=== PATIENT | female | born 1940 | race African-American/Black ===

== ENCOUNTER 2016-05-30 16:20 | Outpatient (CLI) | payer MEDICARE ==
[2016-05-30 18:17] LABS: Hemoglobin A1c 5.4 % (4.0-6.0)
== END 2016-05-30 16:21 | disposition home or self-care (01) ==
LOC: NAV LAB 16:20
PROVIDERS: ATTEND Physical Medicine & Rehabilitation
DX: E11.22 Type 2 diabetes mellitus with diabetic chronic kidney disease (principal)
CPT/HCPCS: 83036

== ENCOUNTER 2016-06-04 15:50 | Emergency (ER) | payer MEDICARE ==
[2016-06-04 16:44] LABS: Bilirubin Negative (Negative); Blood, Urine Moderate (Negative); Glucose, Urine (Dipstick) Negative (Negative); Ketone, Urine Negative (Negative); Nitrite Positive (Negative); Protein, Urine (Dipstick) > or equal to 300 mg/dL (Neg-Trace); Urobilinogen 0.2 mg/dL (0.2-1.0)
[2016-06-04 16:55] LABS: Bacteria/HPF 4+ HPF (None Seen); WBC/HPF 21-50 HPF (0-3)
[2016-06-04] MEDS ORDERED: Doxycycline 100 MG CAP ONE (17:17)
== END 2016-06-04 17:15 | disposition home or self-care (01) ==
LOC: NAV ERS 15:50
DX: N39.0 Urinary tract infection, site not specified (principal); D50.9 Iron deficiency anemia, unspecified; I50.9 Heart failure, unspecified; E11.9 Type 2 diabetes mellitus without complications; E03.9 Hypothyroidism, unspecified; E78.5 Hyperlipidemia, unspecified; E78.00 Pure hypercholesterolemia, unspecified; I11.0 Hypertensive heart disease with heart failure
CPT/HCPCS: 36416; 51701; 81003; 81015; 87077; 87086; 87186; 99283; A4353

== ENCOUNTER 2016-07-20 08:14 | Emergency (ER) | payer MEDICARE ==
[2016-07-20 08:56] LABS: #Basophils 0.2 thou/uL (0.0-0.2); #Eosinphils 1.5 thou/uL (0.0-0.7); #Lymphocytes 1.3 thou/uL (1.20-3.40); #Monocytes 1.4 thou/uL (0.11-0.59); #Neutrophils 7.1 thou/uL (1.40-6.50); %Basophils 1.3 % (0.0-1.0); %Eosinophils 12.9 % (0.0-10.0); %Lymphocytes 11.3 % (21.0-51.0); %Monocytes 12.2 % (0.0-10.0); %Neutrophils 62.1 % (42.0-75.0); Hemoglobin 10.8 g/dL (12.0-16.0); Mean Corpuscular HGB CONC 31.5 g/dL (32.0-36.0); Mean Platelet Volume 6.3 fL (7.4-10.4); Platelet Count 354 thou/uL (130-400); RBC Distribution Width 14.2 % (11.5-14.5); Red Blood Cell (RBC) Count 3.87 mill/uL (4.20-5.40); White Blood Cell (WBC) Count 11.5 thou/uL (4.8-10.8)
[2016-07-20] MEDS ORDERED: Acetaminophen 500 MG TAB ONE (08:56)
[2016-07-20] MEDS ORDERED: Piperacillin/Tazobactam 3.375 GM VIAL ONE (08:58)
[2016-07-20] MEDS ORDERED: Sodium Chloride 0.9% 250 ML 250 ML ONE (09:00)
[2016-07-20] MEDS ORDERED: Sodium Chloride 0.9% 100 ML ONE (09:01)
[2016-07-20 09:10] LABS: ALT (SGPT) 9 U/L (0-55); AST (SGOT) 15 U/L (5-34); Albumin 3.3 g/dL (3.4-4.8); Alkaline Phosphatase 101 U/L (40-150); Anion Gap 16 mmol/L (10-20); BUN (Urea Nitrogen) 31 mg/dL (9.8-20.1); Bilirubin, Total 0.6 mg/dL (0.2-1.2); Calc. Creatinine Clearance 0 mL/min (70-130); Calcium 9.6 mg/dL (7.8-10.44); Carbon Dioxide 31 mmol/L (23-31); Chloride 94 mmol/L (98-107); Estimated GFR-MDRD 12; Globulin 3.9 g/dL (2.4-3.5); Glucose 140 mg/dL (83-110); Lipase 35 U/L (8-78); Potassium 3.8 mmol/L (3.5-5.1); Protein, Total 7.2 g/dL (5.8-8.1); Sodium 137 mmol/L (136-145)
[2016-07-20 09:11] LABS: CKMB 1.2 ng/mL (0-6.6); Troponin I 0.147 ng/mL (< 0.028)
--- NOTE | 2016-07-20 09:31 | RAD ---
PORTABLE CHEST 1 VIEW: Date: 07/20/16 Time: 0839 hours HISTORY: End-stage renal disease, severe coronary artery disease, shortness of breath, and fever. FINDINGS/IMPRESSION: Comparison made with exam of 05/06/16. The heart is enlarged. There is pulmonary vascular congestion. No confluent areas of consolidation, pneumothoraces, or large effusions are seen. POS: [facility]
== END 2016-07-20 11:15 | disposition short-term general hospital (02) ==
LOC: NAV ERS 08:14
DX: A41.9 Sepsis, unspecified organism (principal); R09.02 Hypoxemia; I25.10 Atherosclerotic heart disease of native coronary artery without angina pectoris; E11.9 Type 2 diabetes mellitus without complications; E03.9 Hypothyroidism, unspecified; E78.5 Hyperlipidemia, unspecified; I13.2 Hypertensive heart and chronic kidney disease with heart failure and with stage 5 chronic kidney disease, or end stage renal disease; N18.6 End stage renal disease; I50.9 Heart failure, unspecified; F41.9 Anxiety disorder, unspecified; F32.9 Major depressive disorder, single episode, unspecified; Z87.891 Personal history of nicotine dependence; Z79.4 Long term (current) use of insulin; Z79.82 Long term (current) use of aspirin; Z79.899 Other long term (current) drug therapy
CPT/HCPCS: 71010; 80053; 82553; 83605; 83690; 84484; 85025; 87040; 93005; 96365; 96367; J2543; J3370; J7050

== ENCOUNTER 2016-08-01 12:20 | Outpatient (CLI) | payer MEDICARE ==
[2016-08-01 13:54] LABS: Hemoglobin A1c 5.7 % (4.0-6.0)
== END 2016-08-01 12:21 | disposition home or self-care (01) ==
LOC: NAV LABSP 12:20
PROVIDERS: ATTEND Family Medicine
DX: E11.22 Type 2 diabetes mellitus with diabetic chronic kidney disease (principal)
CPT/HCPCS: 83036

== ENCOUNTER 2017-05-31 06:58 | Emergency (ER) | payer MEDICARE, MEDICAID ==
[2017-05-31] MEDS ORDERED: cloNIDine 0.2 MG TAB ONE (07:28)
== END 2017-05-31 09:10 | disposition home or self-care (01) ==
LOC: NAV ERS 06:58
DX: Z49.01 Encounter for fitting and adjustment of extracorporeal dialysis catheter (principal); I13.2 Hypertensive heart and chronic kidney disease with heart failure and with stage 5 chronic kidney disease, or end stage renal disease; I50.9 Heart failure, unspecified; N18.6 End stage renal disease; J44.9 Chronic obstructive pulmonary disease, unspecified; Z99.2 Dependence on renal dialysis; D50.0 Iron deficiency anemia secondary to blood loss (chronic); E78.5 Hyperlipidemia, unspecified; E11.9 Type 2 diabetes mellitus without complications; F41.9 Anxiety disorder, unspecified; F32.9 Major depressive disorder, single episode, unspecified; Z79.899 Other long term (current) drug therapy; Z79.4 Long term (current) use of insulin
CPT/HCPCS: 99283

== ENCOUNTER 2017-08-06 07:20 | Emergency (ER) | payer MEDICARE, MEDICAID | END 2017-08-06 08:54 | LOC: NAV ERS 07:20 | DX: I13.2 Hypertensive heart and chronic kidney disease with heart failure and with stage 5 chronic kidney disease, or end stage renal disease (principal); E11.22 Type 2 diabetes mellitus with diabetic chronic kidney disease; I50.9 Heart failure, unspecified; N18.6 End stage renal disease; E78.5 Hyperlipidemia, unspecified; Z85.3 Personal history of malignant neoplasm of breast | CPT/HCPCS: 36415; 71045; 80053; 82553; 83605; 83880; 84443; 84484; 85025; 85610; 85730; 93005; 94640; 94660; J7620 ==

== ENCOUNTER 2018-02-07 12:59 | Emergency (ER) | payer MEDICARE, MEDICAID ==
[2018-02-07] MEDS ORDERED: Clindamycin 150 MG CAP ONE (13:51)
== END 2018-02-07 14:12 | disposition home or self-care (01) ==
LOC: NAV ERS 12:59
DX: L03.114 Cellulitis of left upper limb (principal); I25.10 Atherosclerotic heart disease of native coronary artery without angina pectoris; Z86.73 Personal history of transient ischemic attack (TIA), and cerebral infarction without residual deficits; I12.0 Hypertensive chronic kidney disease with stage 5 chronic kidney disease or end stage renal disease; N18.6 End stage renal disease; E11.22 Type 2 diabetes mellitus with diabetic chronic kidney disease; Z99.2 Dependence on renal dialysis; Z87.891 Personal history of nicotine dependence; Z79.899 Other long term (current) drug therapy; Z79.82 Long term (current) use of aspirin
CPT/HCPCS: 99283

== ENCOUNTER 2018-08-24 14:08 | Emergency (ER) | payer MEDICARE, MEDICAID ==
[2018-08-24] MEDS ORDERED: cloNIDine 0.2 MG TAB ONE (14:44)
[2018-08-24 15:08] LABS: Anion Gap 19 mmol/L (10-20); BUN (Urea Nitrogen) 33 mg/dL (9.8-20.1); Calc. Creatinine Clearance 0 mL/min (70-130); Calcium 10.2 mg/dL (7.8-10.44); Carbon Dioxide 29 mmol/L (23-31); Chloride 95 mmol/L (98-107); Estimated GFR-MDRD 11; Glucose 123 mg/dL (83-110); Potassium 4.1 mmol/L (3.5-5.1); Sodium 139 mmol/L (136-145)
[2018-08-24 15:24] LABS: #Basophils 0.1 thou/uL (0.0-0.2); #Eosinphils 0.3 thou/uL (0.0-0.7); #Lymphocytes 1.5 thou/uL (1.20-3.40); #Monocytes 0.9 thou/uL (0.11-0.59); #Neutrophils 7.5 thou/uL (1.40-6.50); %Eosinophils 3.4 % (0.0-10.0); %Lymphocytes 14.4 % (21.0-51.0); %Monocytes 8.4 % (0.0-10.0); %Neutrophils 72.9 % (42.0-75.0); Hemoglobin 11.2 g/dL (12.0-16.0); Mean Corpuscular HGB CONC 32.8 g/dL (32.0-36.0); Mean Corpuscular Hemoglobin 30.1 pg (27.0-31.0); Mean Corpuscular Volume 91.9 fL (78.0-98.0); Mean Platelet Volume 6.6 fL (7.4-10.4); Platelet Count 249 thou/uL (130-400); RBC Distribution Width 12.7 % (11.5-14.5); White Blood Cell (WBC) Count 10.3 thou/uL (4.8-10.8)
[2018-08-24] MEDS ORDERED: Labetalol 5 MG/ML SYRINGE (IV ROOM) ONE (15:44)
== END 2018-08-24 16:28 | disposition home or self-care (01) ==
LOC: NAV ERS 14:08
DX: I12.0 Hypertensive chronic kidney disease with stage 5 chronic kidney disease or end stage renal disease (principal); N18.6 End stage renal disease; I25.10 Atherosclerotic heart disease of native coronary artery without angina pectoris; E10.22 Type 1 diabetes mellitus with diabetic chronic kidney disease; Z87.891 Personal history of nicotine dependence; Z79.899 Other long term (current) drug therapy; Z79.4 Long term (current) use of insulin; Z79.891 Long term (current) use of opiate analgesic
CPT/HCPCS: 80048; 84484; 85025; 93005; 96374

== ENCOUNTER 2019-01-09 06:02 | Emergency (ER) | payer MEDICARE, MEDICAID ==
[2019-01-09 06:26] LABS: #Basophils 0.1 thou/uL (0.0-0.2); #Eosinphils 0.4 thou/uL (0.0-0.7); #Lymphocytes 1.6 thou/uL (1.20-3.40); #Monocytes 0.7 thou/uL (0.11-0.59); #Neutrophils 6.1 thou/uL (1.40-6.50); %Basophils 1.1 % (0.0-1.0); %Lymphocytes 17.4 % (21.0-51.0); %Monocytes 8.2 % (0.0-10.0); %Neutrophils 68.3 % (42.0-75.0); Hemoglobin 11.7 g/dL (12.0-16.0); Mean Corpuscular HGB CONC 31.5 g/dL (32.0-36.0); Mean Corpuscular Hemoglobin 28.2 pg (27.0-31.0); Mean Corpuscular Volume 89.4 fL (78.0-98.0); Mean Platelet Volume 6.8 fL (7.4-10.4); Platelet Count 231 thou/uL (130-400); Red Blood Cell (RBC) Count 4.16 mill/uL (4.20-5.40)
[2019-01-09] MEDS ORDERED: Nitroglycerin 2% Ointment 1 INCH/1 GM Packet ONE (06:29)
[2019-01-09] MEDS ORDERED: hydrALAZINE 20 MG/ML VIAL ONE (06:40)
[2019-01-09 06:46] LABS: ALT (SGPT) 13 U/L (8-55); AST (SGOT) 22 U/L (5-34); Albumin 3.8 g/dL (3.4-4.8); Alkaline Phosphatase 155 U/L (40-150); Anion Gap 18 mmol/L (10-20); BUN (Urea Nitrogen) 24 mg/dL (9.8-20.1); Bilirubin, Total 0.6 mg/dL (0.2-1.2); Calc. Creatinine Clearance 0 mL/min (70-130); Calcium 10.5 mg/dL (7.8-10.44); Carbon Dioxide 27 mmol/L (23-31); Chloride 98 mmol/L (98-107); Estimated GFR-MDRD 11; Globulin 3.7 g/dL (2.4-3.5); Glucose 142 mg/dL (83-110); Potassium 4.4 mmol/L (3.5-5.1); Protein, Total 7.5 g/dL (6.0-8.3); Sodium 139 mmol/L (136-145)
[2019-01-09 07:04] LABS: CKMB 0.8 ng/mL (0-6.6)
--- NOTE | 2019-01-09 08:38 | RAD ---
CHEST 1 VIEW: Date: 01/09/19 INDICATION: Dyspnea. COMPARISON: Prior exam dated 08/30/18. FINDINGS: There are small bilateral pleural effusions. There is left basilar air space opacity. There is cardio megaly with pulmonary vascular congestion. There is scattered degenerative change. There is mild card iomegaly. IMPRESSION: 1. Findings suspicious for mild CHF. 2. Left basilar opacity may reflect areas of subsegmental volume loss and/or pneumonia. Recommend co rrelation. Continued radiographic follow-up recommended. POS: [facility]
== END 2019-01-09 07:38 | disposition short-term general hospital (02) ==
LOC: NAV ERS 06:02
DX: I16.1 Hypertensive emergency (principal); I13.2 Hypertensive heart and chronic kidney disease with heart failure and with stage 5 chronic kidney disease, or end stage renal disease; N18.6 End stage renal disease; I50.9 Heart failure, unspecified; I25.10 Atherosclerotic heart disease of native coronary artery without angina pectoris; E11.22 Type 2 diabetes mellitus with diabetic chronic kidney disease; Z99.2 Dependence on renal dialysis; Z86.73 Personal history of transient ischemic attack (TIA), and cerebral infarction without residual deficits; Z87.891 Personal history of nicotine dependence; Z79.899 Other long term (current) drug therapy; Z79.82 Long term (current) use of aspirin
CPT/HCPCS: 36415; 71045; 80053; 82553; 83880; 84484; 85025; 93005; 94760; 96374; J0360

== ENCOUNTER 2019-06-03 12:09 | Outpatient (CLI) | payer MEDICARE, MEDICAID ==
--- NOTE | 2019-06-03 12:37 | RAD ---
XR Chest Pa Lat STANDARD HISTORY: Shortness of breath and productive cough. COPD and dialysis COMPARISON: 01/09/2019 FINDINGS: The heart is enlarged. There is pulmonary vascular congestion with small pleural effusions and left basilar infiltrates.
== END 2019-06-03 12:10 | disposition home or self-care (01) ==
LOC: NAV RAD 12:09
PROVIDERS: ATTEND Family Medicine
DX: I50.23 Acute on chronic systolic (congestive) heart failure (principal); R09.02 Hypoxemia
CPT/HCPCS: 71046

== ENCOUNTER 2020-08-26 16:27 | Outpatient (CLI) | payer MEDICARE, MEDICAID | END 2020-08-26 16:28 | disposition home or self-care (01) | LOC: NAV RAD 16:27 | PROVIDERS: ATTEND Family Medicine | DX: R06.02 Shortness of breath (principal); J90 Pleural effusion, not elsewhere classified; I51.7 Cardiomegaly | CPT/HCPCS: 71046 ==

== ENCOUNTER 2021-07-14 15:35 | Outpatient (CLI) | payer MEDICARE, MEDICAID | END 2021-07-14 15:36 | disposition home or self-care (01) | LOC: NAV RAD 15:35 | PROVIDERS: ATTEND Family Medicine | DX: M17.12 Unilateral primary osteoarthritis, left knee (principal) ==